=== PATIENT | female | born 1990 | race Caucasian/White ===

== ENCOUNTER 2021-10-26 08:12 | Emergency (ER) | payer OTHER ==
[~2021-10-26] VITALS: Ht 165.1 cm; Wt 74.5 kg
[2021-10-26] MEDS ORDERED: ACETAMINOPHEN 500 MG TABLET PO ONE (09:00)
[2021-10-26 09:39] LABS: COVID AG,FIA SOURCE NASOPHARYNGEAL
[2021-10-26 10:14] LABS: RAPID GROUP A STREP NEGATIVE (NEGATIVE)
[2021-10-26 10:23] LABS: INFLUENZA TYPE A NEGATIVE FOR TYPE A (NEGATIVE); INFLUENZA TYPE B NEGATIVE FOR TYPE B (NEGATIVE)
[2021-10-26 10:42] VITALS: BP 116/74
== END 2021-10-26 11:11 | disposition home or self-care (01) ==
LOC: EMS 08:20
DX: O98.513 Other viral diseases complicating pregnancy, third trimester (principal); Z3A.34 34 weeks gestation of pregnancy; Z98.890 Other specified postprocedural states; Z20.822 Contact with and (suspected) exposure to COVID-19
CPT/HCPCS: 87430; 87804; 99283

== ENCOUNTER 2024-05-04 20:47 | Emergency (ER) | payer OTHER ==
[~2024-05-04] VITALS: Ht 162.6 cm; Wt 75.0 kg
[2024-05-04 20:54] VITALS: TEMP 97.8
[2024-05-05] VITALS: BP 133/87; PULSE 81; RESP 17; O2SAT 98
[2024-05-05] MEDS: ACETAMINOPHEN/CODEINE 300-30 MG TABLET PO ONE (00:02)
[2024-05-05] MEDS: KETOROLAC TROMETHAMINE 60 MG/2 ML VIAL IM ONE (00:02)
[2024-05-05] MEDS: METHOCARBAMOL 500 MG TABLET PO ONE (00:02)
[2024-05-05] MEDS ORDERED: METH-659 PO (00:49)
[2024-05-05] MEDS ORDERED: ACET-2080 PO (00:49)
[2024-05-05] MEDS ORDERED: IBUP-1554 PO (00:49)
== END 2024-05-05 01:12 | disposition home or self-care (01) ==
LOC: EMS 20:47
DX: S16.1XXA Strain of muscle, fascia and tendon at neck level, initial encounter (principal); G44.209 Tension-type headache, unspecified, not intractable; X50.1XXA Overexertion from prolonged static or awkward postures, initial encounter; Y93.89 Activity, other specified; Y92.89 Other specified places as the place of occurrence of the external cause; Y99.8 Other external cause status
CPT/HCPCS: 99283; 72040; 96372; J1885